=== PATIENT | male | born 1995 | race Caucasian/White ===

== ENCOUNTER → 2023-03-17 10:08 | Outpatient (BNVA) | payer BC, SELFPAY | PROVIDERS: Family Provider Family Medicine; PCP Family Medicine; Visit Provider Family Medicine | DX: Z00.00 Encounter for general adult medical examination without abnormal findings (principal); K29.70 Gastritis, unspecified, without bleeding; Z13.6 Encounter for screening for cardiovascular disorders | CPT/HCPCS: 80053; 80061; 85025 ==

== ENCOUNTER 2024-01-14 14:00 | Outpatient (CLI) | payer BC, SELFPAY ==
[2024-01-14 15:36] LABS: Side 1 13
[2024-01-14 15:37] LABS: Side 2 14; Side WITHIN 10% 7
[2024-01-14 15:38] LABS: Sperm Immotility 85 % (50-60); Sperm Non-Progressive Motility 5 % (5-10); Sperm Progressive Motility 10 % (31-34); Viscosity Semen High Viscosity; White Blood Count Semen 0-4 /hpf
[2024-01-14 15:39] LABS: Pathology Referral Yes; Sperm Vitality-% Live Sperm 58 %
== END 2024-01-14 14:01 | disposition home or self-care (01) ==
PROVIDERS: Family Provider Family Medicine; PCP Family Medicine; Visit Provider Nurse Practitioner Women's Health
DX: N46.11 Organic oligospermia (principal)
CPT/HCPCS: 80503; 89320

== ENCOUNTER 2024-07-07 00:01 | Outpatient (CLI) | payer BC, SELFPAY ==
[2024-07-07 00:45] LABS: Volume Semen 1.5 mL (2-5)
[2024-07-07 00:47] LABS: Viscosity Semen High Viscosity; White Blood Count Semen 0-5 /hpf
[2024-07-07 01:04] LABS: Sperm Vitality-% Live Sperm 83 %
[2024-07-07 01:06] LABS: Sperm Progressive Motility 45 % (31-34)
[2024-07-07 01:07] LABS: Pathology Referral Yes; Sperm Immotility 35 % (50-60); Sperm Non-Progressive Motility 20 % (5-10)
[2024-07-07 02:03] LABS: Side 1 145; Side 2 145
== END 2024-07-07 00:02 | disposition home or self-care (01) ==
PROVIDERS: Family Provider Family Medicine; PCP Family Medicine; Visit Provider Nurse Practitioner Women's Health
DX: N46.11 Organic oligospermia (principal)
CPT/HCPCS: 80503; 89320

== ENCOUNTER 2024-09-26 10:37 | Outpatient (CLI) | payer BC, SELFPAY ==
[2024-09-26 11:22] LABS: Follicle Stimulating Hormone 5.1 mIU/mL (1.5-12.4)
== END 2024-09-26 10:38 | disposition home or self-care (01) ==
PROVIDERS: PCP Family Medicine; Visit Provider Urology
DX: N46.9 Male infertility, unspecified (principal)
CPT/HCPCS: 83001; 83002; 84146; 84403

== ENCOUNTER 2024-12-11 08:20 | Outpatient (CLI) | payer BC, SELFPAY ==
[2024-12-11 08:46] LABS: Epithelial Count Semen 0-4 /hpf; Red Blood Count Semen 0-4 /hpf; Viscosity Semen High Viscosity; White Blood Count Semen 0-4 /hpf
[2024-12-11 08:49] LABS: Volume Semen 2.0 mL (2-5)
[2024-12-11 08:55] LABS: Sperm Non-Progressive Motility 10 % (5-10)
[2024-12-11 08:56] LABS: Sperm Immotility 50 % (50-60); Sperm Progressive Motility 40 % (31-34)
[2024-12-11 08:57] LABS: Pathology Referral Yes
[2024-12-11 09:08] LABS: Sperm Count 3.6000 mill/mL (40-160)
[2024-12-11 09:34] LABS: Follicle Stimulating Hormone 8.8 mIU/mL (1.5-12.4)
== END 2024-12-11 08:21 | disposition home or self-care (01) ==
PROVIDERS: PCP Family Medicine; Visit Provider Urology
DX: N46.9 Male infertility, unspecified (principal); E29.1 Testicular hypofunction
CPT/HCPCS: 80503; 83001; 83002; 84146; 84403; 89320